=== PATIENT | male | born 1985 | race Caucasian/White ===

== ENCOUNTER 2022-11-27 18:09 | Emergency (ER) | payer BC ==
[2022-11-27] MEDS ORDERED: Diphtheria,Pertussis(Acell),Tetanus Vaccine 0.5 ML Syringe IM ONE (18:59)
[2022-11-27] MEDS ORDERED: Lidocaine 1% 5 ML VIAL INJECT ONE (19:08)
[2022-11-27] MEDS ORDERED: Ibuprofen 800 MG Tab PO ONE (19:09)
[2022-11-27] MEDS ORDERED: Lidocaine 1% 10 ML MDV ONE (19:14)
[2022-11-27] MEDS ORDERED: Lidocaine 1% 10 ML MDV INJECT ONE (19:52)
== END 2022-11-27 20:10 | disposition home or self-care (01) ==
LOC: JD.ED 18:09
DX: S61.215A Laceration without foreign body of left ring finger without damage to nail, initial encounter (principal); S67.195A Crushing injury of left ring finger, initial encounter; W55.22XA Struck by cow, initial encounter
CPT/HCPCS: 12002; 73130; 90471; 90715; 99283; A9270; J3490